=== PATIENT | male | born 1965 | race African-American/Black ===

== ENCOUNTER 2023-11-05 16:27 | Emergency (ER) | payer MEDICAID, OTHER ==
[~2023-11-05] VITALS: Ht 182.9 cm; Wt 73.0 kg
[2023-11-05 16:42] VITALS: TEMP 97.4; O2SAT 97
[2023-11-05] MEDS: HALOPERIDOL LACTATE 5MG/ML VIAL IM ONE (17:30)
[2023-11-05] MEDS: LIDOCAINE HCL/EPINEPHRINE 1%-EPI 1:100,000 20ML VIAL INFIL NR (21:25)
[2023-11-05] MEDS: TETANUS, DIPHTHERIA, PERTUSSIS VAC/PF 0.5ML (>10YR OLD) IM ONE (21:29)
[2023-11-05 21:42] VITALS: BP 179/89; PULSE 85; RESP 19; O2SAT 97
== END 2023-11-05 21:44 ==
LOC: ER 16:27
DX: S01.81XA Laceration without foreign body of other part of head, initial encounter (principal); F31.9 Bipolar disorder, unspecified; Z86.59 Personal history of other mental and behavioral disorders; Y04.0XXA Assault by unarmed brawl or fight, initial encounter; Y93.89 Activity, other specified; Y92.89 Other specified places as the place of occurrence of the external cause; Y99.8 Other external cause status
CPT/HCPCS: 73030; 73560; 73562; 70450; 70486; 90715; 12013; 90471; 99285; Z7610 ×3; L1830